=== PATIENT | female | born 1985 | race African-American/Black ===

== ENCOUNTER 2017-09-16 01:10 | Emergency (ER) | payer BC, MEDICAID ==
[~2017-09-16] VITALS: Ht 162.6 cm; Wt 50.8 kg
[2017-09-16 01:16] VITALS: BP 103/66
[2017-09-16] MEDS ORDERED: DIPH,PERTUSS(ACELL),TET VAC/PF 0.5 ML IM-VACC ONE ×2 (01:39→02:00)
== END 2017-09-16 02:58 | disposition home or self-care (01) ==
LOC: ED 02:52
DX: M79.642 Pain in left hand (principal); J45.909 Unspecified asthma, uncomplicated
CPT/HCPCS: 90471; 90715

== ENCOUNTER 2017-12-16 19:03 | Emergency (ER) | payer BC ==
[~2017-12-16] VITALS: Ht 162.6 cm; Wt 50.6 kg
[2017-12-16 19:55] LABS: MEAN CORPUSCULAR HEMOGLOBIN 27.3 pg (27.0-34.8); MEAN CORPUSCULAR HGB CONC 32.8 g/dL (32.4-35.8); MEAN CORPUSCULAR VOLUME 83.2 fL (80-100); MEAN PLATELET VOLUME 8.9 fL (7.4-10.4); PLATELET COUNT 265 x10^3/uL (130-400); RED BLOOD COUNT 4.55 x10^6/uL (3.82-5.3); RED CELL DISTRIBUTION WIDTH 14.3 % (9.6-15.2)
[2017-12-16 19:59] VITALS: BP 94/58
[2017-12-16 20:05] LABS: ALBUMIN 3.5 g/dL (3.4-5.0); ANION GAP 7 mmol/L (5-15); CALCIUM 8.2 mg/dL (8.5-10.1); CHLORIDE 108 mmol/L (98-107)
[2017-12-16 20:06] LABS: CREATININE 0.98 mg/dL (0.55-1.02)
[2017-12-16 20:38] LABS: MD YES
[2017-12-16 20:39] LABS: BASOS#(MANUAL) 0.09 x10^3/uL (0-0.1); BASOS% (MANUAL) 1 % (0-1); EOS#(MANUAL) 0.17 x10^3/uL (0.0-0.4); EOS% (MANUAL) 2 % (1-7); LYMPH#(MANUAL) 4.59 x10^3/uL (1-3.4); LYMPHS% (MANUAL) 54 % (22-44); MONOS#(MANUAL) 0.68 x10^3/uL (0.3-2.7); MONOS% (MANUAL) 8 % (2-9); SEG#(MANUAL) 2.81 x10^3/uL (1.8-6.8); SEGS% (MANUAL) 33 % (42-75)
[2017-12-16 20:40] LABS: REACTIVE LYMPHS # (MANUAL) 0.17 x10^3/uL (0-0); REACTIVE LYMPHS % (MANUAL) 2 % (0-0)
[2017-12-16 20:41] LABS: <PLATELET ESTIMATE> ADEQUATE; <PLT MORPHOLOGY> NORMAL PLT MORPH; <RBC MORPHOLOGY> NORMAL
[2017-12-16 20:43] LABS: HCG UR SG 1.021 (1.003-1.030)
[2017-12-16 20:46] LABS: CULTURE INDICATED? YES; MICROSCOPIC INDICATED
== END 2017-12-16 21:43 | disposition home or self-care (01) ==
LOC: ED 21:37
DX: G89.29 Other chronic pain (principal); M25.562 Pain in left knee; R53.1 Weakness; R55 Syncope and collapse
CPT/HCPCS: 36415; 80048; 81001; 81025; 82040; 85025; 87086; 93005; 99285